=== PATIENT | male | born 1950 | race Hispanic/Latino ===

== ENCOUNTER 2017-12-11 01:21 | Emergency (ER) | payer MEDICARE, OTHER ==
[~2017-12-11] VITALS: Ht 182.9 cm; Wt 96.6 kg
--- OUTSIDE RECORDS SUMMARY | 2017-12-11 01:24 | XMS REPORT | Clinical Summary ---
Author Author [facility] Organization [facility] Address Unknown Phone Unavailable Care Team Providers Care Retail Sales Lead Name Role Phone Tavo Mina MD PCP Allergies Active Allergy Reactions Severity Noted Date Comments Penicillins Hives 03/02/2016 Tongue , eyelids swells Current Medications Prescription Sig. Disp. Refills Start End Date Status Date clopidogrel (PLAVIX) 75 Take 75 mg by mouth Active mg tablet daily. isosorbide mononitrate Take 30 mg by mouth 2 Active (IMDUR) 30 MG 24 hr (two) times a day. tablet pen needle, diabetic (BD Use once daily for 30 each 2 03/30/20 Active ULTRA-FINE JT PEN insulin administration 16 NEEDLES) 32 gauge x 5/32" needleIndications: Type 2 diabetes mellitus with diabetic chronic kidney disease furosemide (LASIX) 20 MG Take 1 tablet (20 mg 60 tablet 2 03/30/20 Active tabletIndications: total) by mouth 2 (two) 16 Essential hypertension times a day. aspirin (ECOTRIN) 81 MG Take 81 mg by mouth Active enteric coated tablet daily. insulin GLARGINE (LANTUS Inject 10 Units under the 1 pen 2 03/14/20 Active SOLOSTAR) 100 unit/mL skin daily. 17 injection (pen)Indications: Type 2 diabetes mellitus with chronic kidney disease, without long-term current use of insulin, unspecified CKD stage atorvastatin (LIPITOR) 10 TAKE ONE TABLET BY MOUTH 90 tablet 3 Active MG tabletIndications: ONCE NIGHTLY 17 Coronary artery disease involving [place] coronary artery of [place] heart without angina pectoris metoprolol tartrate Take 1.5 tablets (37.5 mg 90 tablet 0 07/18/20 Active (LOPRESSOR) 25 mg total) by mouth 2 (two) 17 tabletIndications: times a day. Essential hypertension losartan (COZAAR) 50 MG Take 50 mg by mouth Active tablet daily. hydrALAZINE (APRESOLINE) TAKE ONE TABLET BY MOUTH 180 tablet 1 Active 25 MG tabletIndications: TWICE DAILY 18 Essential hypertension cholecalciferol, vitamin Take 50,000 Units by 12/19/19 Discontin D3, 50,000 unit capsule mouth once a week. 17 ued losartan (COZAAR) 100 MG Take 1 tablet (100 mg 30 tablet 2 03/30/20 03/05/20 Discontin tabletIndications: total) by mouth daily. 16 17 ued Essential hypertension insulin GLARGINE (LANTUS Inject 10 Units under the 1 pen 2 03/30/20 03/14/20 Discontin SOLOSTAR) 100 unit/mL (3 skin daily. 16 17 ued mL) insulin penIndications: Type 2 diabetes mellitus with diabetic chronic kidney disease hydrALAZINE (APRESOLINE) Take 1/2 tablet by mouth 90 tablet 2 03/05/20 Discontin 25 MG tabletIndications: twice daily 16 17 ued Essential hypertension montelukast (SINGULAIR) Take 1 tablet (10 mg 30 tablet 2 11/23/19 Discontin 10 mg tabletIndications: total) by mouth nightly. 17 17 ued Allergic rhinitis, unspecified allergic rhinitis trigger, unspecified rhinitis seasonality atorvastatin (LIPITOR) 10 TAKE ONE TABLET BY MOUTH 30 tablet 0 01/10/20 Discontin MG tabletIndications: ONCE NIGHTLY 17 17 ued Coronary artery disease involving e[place] coronary artery of [place] heart without angina pectoris metoprolol tartrate TAKE ONE & ONE-HALF 90 tablet 0 12/06/19 Discontin (LOPRESSOR) 25 mg TABLETS BY MOUTH TWICE 17 17 ued tabletIndications: DAILY Essential hypertension acetaminophen (TYLENOL) Take 500 mg by mouth 07/25/20 Discontin 500 MG tablet every 6 (six) hours as 17 ued needed for mild pain. atorvastatin (LIPITOR) 10 TAKE ONE TABLET BY MOUTH 90 tablet 1 07/09/20 Discontin MG tabletIndications: ONCE NIGHTLY 17 17 ued Coronary artery disease involving e[place] coronary artery of [place] heart without angina pectoris metoprolol tartrate Take 1.5 tablets (37.5 mg 90 tablet 1 01/10/20 04/13/20 Discontin (LOPRESSOR) 25 mg total) by mouth 2 (two) 17 17 ued tabletIndications: times a day. Essential hypertension hydrALAZINE (APRESOLINE) TAKE ONE TABLET BY MOUTH 180 tablet 1 11/14/19 Discontin 25 MG tabletIndications: TWICE DAILY 17 18 ued Essential hypertension losartan (COZAAR) 100 MG TAKE ONE TABLET BY MOUTH 30 tablet 0 07/11/20 Discontin tabletIndications: ONCE DAILY 17 17 ued Essential hypertension metoprolol succinate XL TAKE ONE & ONE-HALF 90 tablet 0 04/13/2006/17 Discontin (TOPROL-XL) 25 mg 24 hr TABLETS BY MOUTH TWICE 17 17 ued tabletIndications: DAILY Essential hypertension metoprolol tartrate TAKE ONE & ONE-HALF 90 tablet 0 06/05/20 Discontin (LOPRESSOR) 25 mg TABLETS BY MOUTH TWICE 17 17 ued tabletIndications: DAILY Essential hypertension losartan (COZAAR) 100 MG Take 1 tablet (100 mg 90 tablet 2 07/11/20 07/25/20 Discontin tabletIndications: total) by mouth once 17 17 ued Essential hypertension daily. Active Problems Problem Noted Date Type 2 diabetes mellitus with diabetic chronic kidney disease 05/03/2016 Encounters Date Type Specialty Care Team Description 12/10/2017 Telephone Internal Medicine April Paulino MA 11/14/2017 Refill Internal Medicine Gagan Mina MD Essential hypertension 08/07/2017 Emergency Emergency Medicine Pradip Hemphill DO Epistaxis (Primary Dx) 07/25/2017 Office Visit Internal Medicine Gagan Mina MD Routine general medical examination at a health care facility (Primary Dx); Screening for colon cancer; Screening for prostate cancer; Type 2 diabetes mellitus with stage 3 chronic kidney disease, with long-term current use of insulin; Coronary artery disease involving ekw[place] coronary artery of ekw[place] heart without angina pectoris; History of renal cell cancer; Obesity (BMI 30.0-34.9); Flu vaccine need 07/18/2017 Orders Only Internal Medicine April Paulino MA Essential hypertension 07/11/2017 Orders Only Internal Medicine April Paulino MA Essential hypertension 07/09/2017 Orders Only Internal Medicine Gagan Mina MD Coronary artery disease involving e[place] coronary artery of ekw[place] heart without angina pectoris 06/05/2017 Refill Internal Medicine Gagan Mina MD Essential hypertension 04/13/2017 Refill Internal Medicine Gagan Mina MD Essential hypertension 03/14/2017 Orders Only Internal Medicine April Paulino MA Type 2 diabetes mellitus with chronic kidney disease, without long-term current use of insulin, unspecified CKD stage 03/05/2017 Refill Internal Medicine Gagan Mina MD Essential hypertension 02/19/2017 Telephone Internal Medicine April Paulino MA 01/10/2017 Telephone Internal Medicine April Paulino MA 01/09/2017 Orders Only Internal Medicine April Paulino MA Coronary artery disease involving e[place] coronary artery of ekw[place] heart without angina pectoris; Essential hypertension 12/21/2016 Hospital Plastic Surgery Ernesto Be MD Encounter 12/21/2016 Procedure Pass Plastic Surgery 12/21/2016 Surgery Plastic Surgery Ernesto Be MD VITRECTOMY, ENDOLASER - LEFT EYE 12/19/2016 Anesthesia Plastic Surgery Elodia Marie, [facility] Event after 12/10/2016 Immunizations Name Dates Previously Given Next Due FLUZONE HIGH-DOSE PF 07/25/2017, 11/23/2016 Influenza Trivalent 09/12/2014 Pneumococcal Conjugate 09/18/2012 Family History Medical History Relation Name Comments Stomach cancer Father Diabetes Mother Relation Name Status Comments Father Mother Social History Tobacco Use Types Packs/Day Years Used Date Never Smoker Alcohol Use Drinks/Week oz/Week Comments No Sex Assigned at Date Recorded Not on file Last Filed Vital Signs Vital Sign Reading Time Taken Blood Pressure 171/80 08/07/2017 3:15 AM CDT Pulse 72 08/07/2017 3:30 AM CDT Temperature 36.6 C (97.8 F) 08/07/2017 1:04 AM CDT Respiratory Rate 18 08/07/2017 1:04 AM CDT Oxygen Saturation 100% 08/07/2017 3:30 AM CDT Inhaled Oxygen - - Concentration Weight 105 kg (232 lb) 07/25/2017 9:35 AM CDT Height 182.9 cm (6') 08/07/2017 1:04 AM CDT Body Mass Index 31.46 07/25/2017 9:35 AM CDT Plan of Treatment Date Type Specialty Care Team Description 07/25/2018 Office Visit Internal Medicine Gagan Mina MD [id number] [facility] [address] [place] [address] Health Maintenance Due Date Last Done Comments COLONOSCOPY 1998 ZOSTER VACCINE 2008 PNEUMOCOCCAL-13 2013 FOOT EXAM 05/03/2017 05/03/2016, 05/03/2016 OPHTHALMOLOGY EXAM 05/03/2017 05/03/2016 PNEUMOCOCCAL Completed 09/18/2012 POLYSACCHARIDE VACCINE AGE 65 AND OVER INFLUENZA VACCINE Completed 07/25/2017, 11/23/2016, 09/12/2014 Procedures Procedure Name Priority Date/Time Associated Diagnosis Comments VITRECTOMY, ENDOLASER - 12/21/2016 Vitreous hemorrhage of LEFT EYE 7:15 AM 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 Component Value Ref Range GFR Non Af Amer 13 (A) mL/min/1.73 m2 GFR Af Amer 15 (A) mL/min/1.73 m2 Comment: Chronic kidney disease: <60 mL/min/1.73m2 Kidney failure: <15 mL/min/1.73m2 The estimated GFR is calculated from the IDMS-traceable Modification of Diet in Renal Disease Equation. The accuracy of the calculation is poor when the creatinine is normal. Calculated values >90 mL/min/1.73m2 are not reported. This equation has not been validated in children (<18 years), women, the elderly (>70 years), or ethnic groups other than Caucasians and Americans. Specimen Performing Laboratory Plasma specimen [facility] DEPARTMENT OF PATHOLOGY AND GENOMIC MEDICINE [address] [place] [id number] * Partial thromboplastin time, activated (08/07/2017 3:17 AM) Component Value Ref Range PTT 30.9 23.0 - 36.0 sec Comment: PTT therapeutic range for unfractionated heparin is 61.0-112.0 seconds which corresponds to Anti-Xa 0.3-0.7 U/ml. Specimen Performing Laboratory Blood [facility] DEPARTMENT OF PATHOLOGY AND GENOMIC MEDICINE [address] [place] [address] * Prothrombin time with INR (08/07/2017 3:17 AM) Component Value Ref Range Prothrombin time 14.5 12.0 - 15.0 sec INR 1.1 Comment: The International Normalized Ratio (INR) is a therapeutic monitoring tool for patients who are stable on oral anticoagulant therapy. An INR of 2.0-3.0 is suggested for deep vein thrombosis/pulmonary embolism. Specimen Performing Laboratory Blood [facility] DEPARTMENT OF PATHOLOGY AND [facility] [address] [place] [id number] * CBC with platelet and differential (08/07/2017 3:17 AM) Only the most recent of 3 results within the time period is included. Component Value Ref Range WBC 7.08 4.50 - 11.00 k/uL RBC 3.02 (L) 4.40 - 6.00 m/uL HGB 9.4 (L) 14.0 - 18.0 g/dL HCT 29.9 (L) 41.0 - 51.0 % MCV 99.0 82.0 - 100.0 fL MCH 31.1 27.0 - 34.0 pg MCHC 31.4 31.0 - 37.0 g/dL RDW - SD 52.0 37.0 - 55.0 fL MPV 11.7 8.8 - 13.2 fL Platelet count 166 150 - 400 k/uL Nucleated RBC 0.00 /100 WBC Neutrophils 64.8 39.0 - 69.0 % Lymphocytes 20.2 (L) 25.0 - 45.0 % Monocytes 8.5 0.0 - 10.0 % Eosinophils 5.1 (H) 0.0 - 5.0 % Basophils 1.0 0.0 - 1.0 % Immature granulocytes 0.4Comment: "Immature granulocytes" 0.0 - 1.0 % (promyelocytes, myelocytes, metamyelocytes) Specimen Performing Laboratory Blood [facility] DEPARTMENT OF PATHOLOGY AND GENOMIC MEDICINE [address] [place] [id number] * Comprehensive metabolic panel (08/07/2017 3:17 AM) Only the most recent of 2 results within the time period is included. Component Value Ref Range Sodium 144 135 - 148 mEq/L Potassium 5.1 (H) 3.5 - 5.0 mEq/L Chloride 115 (H) 98 - 112 mEq/L CO2 15 (L) 24 - 31 mEq/L Anion gap 14 7 - 15 mEq/L Comment: Starting from January , anion gap calculation no longer incorporates potassium. Please note the change. BUN 69 (H) 8 - 23 mg/dL Creatinine 4.6 (H) 0.7 - 1.2 mg/dL Glucose 110 (H) 65 - 99 mg/dL Calcium 7.5 (L) 8.8 - 10.2 mg/dL Protein 6.6 6.3 - 8.3 g/dL Comment: 4.6-7.0 g/dL 1 week 4.4-7.6 g/dL 7 months-1year 5.1-7.3 g/dL 1-2 years 5.6-7.5 g/dL >3 years 6.0-8.0 g/dL 18-150 6.3-8.3 g/dL Albumin 2.9 (L) 3.5 - 5.0 g/dL A/G ratio 0.8 0.7 - 3.8 Alkaline phosphatase 110 40 - 129 U/L AST 26 10 - 50 U/L ALT 22 5 - 50 U/L Total bilirubin <0.2 0.0 - 1.2 mg/dL Specimen Performing Laboratory Plasma specimen [facility] DEPARTMENT OF PATHOLOGY AND GENOMIC MEDICINE [address] [place] [address] * Microalbumin / creatinine urine ratio (07/25/2017 10:18 AM) Component Value Ref Range Creatinine, urine, random 108 20 - 370 mg/dL Microalbumin, urine 506.0 See Note: mg/dL Comment: Reference Range: Reference Range Not established Results verified by repeat analysis on dilution. Microalbumin/creatinine 4,685 (H) <30 mcg/mg creat ratio Comment: The ADA defines abnormalities in albumin excretion as follows: Category Result (mcg/mg creatinine) Normal <30 Microalbuminuria 30-299 Clinical albuminuria > XZ=[id number] The ADA recommends that at least two of three specimens collected within a 3-6 month period be abnormal before considering a patient to be within a diagnostic category. Specimen Performing Laboratory Urine [facility] Narrative FASTING:NO * Prostate specific antigen (07/25/2017 10:18 AM) Component Value Ref Range PSA 0.7 < OR=4.0 ng/mL Comment: The total PSA value from this assay system is standardized against the WHO standard. The test result will be approximately 20% lower when compared to the equimolar-standardized total PSA (Osvaldo [place]). Comparison of serial PSA results should be interpreted with this fact in mind. This test was performed using the Siemens chemiluminescent method. Values obtained from different assay methods cannot be used interchangeably. PSA levels, regardless of value, should not be interpreted as absolute evidence of the presence or absence of disease. Specimen Performing Laboratory Blood [facility] Narrative FASTING:NO * Lipid panel (07/25/2017 10:18 AM) Component Value Ref Range Cholesterol, total 127 <200 mg/dL HDL cholesterol 33 (L) >40 mg/dL Triglycerides 109 <150 mg/dL LDL cholesterol 75 mg/dL (calc) calculated Comment: Reference range: <100 Desirable range <100 mg/dL for patients with CHD or diabetes and <70 mg/dL for diabetic patients with known heart disease. LDL-C is now calculated using the rSinivas-Lopez calculation, which is a validated novel method providing better accuracy than the Friedewald equation in the estimation of LDL-C. Srinivas SS et al. BON. 2013;310(51): 4716-6080 (http://education.Picplum/faq/QPZ932) Cholesterol/HDL ratio 3.8 <5.0 (calc) Non-HDL cholesterol 94 <130 mg/dL (calc) Comment: For patients with diabetes plus 1 major ASCVD risk factor, treating to a non-HDL-C goal of <100 mg/dL (LDL-C of <70 mg/dL) is considered a therapeutic option. Specimen Performing Laboratory Blood [facility] Narrative FASTING:NO * Basic metabolic panel (07/25/2017 10:18 AM) Component Value Ref Range Glucose 171 (H) 65 - 99 mg/dL Comment: Fasting reference interval For someone without known diabetes, a glucose value >125 mg/dL indicates that they may have diabetes and this should be confirmed with a follow-up test. BUN, whole blood 66 (H) 7 - 25 mg/dL Creatinine 3.91 (H) 0.70 - 1.25 mg/dL Comment: For patients >49 years of age, the reference limit for Creatinine is approximately 13% higher for people identified as -Scottish. EGFR Non-Afr. Scottish 15 (L) > OR=60 mL/min/1.73m2 EGFR 17 (L) > OR=60 mL/min/1.73m2 BUN/creatinine ratio 17 6 - 22 (calc) Sodium 145 135 - 146 mmol/L Potassium 5.1 3.5 - 5.3 mmol/L Chloride 116 (H) 98 - 110 mmol/L CO2 20 20 - 31 mmol/L Calcium 7.9 (L) 8.6 - 10.3 mg/dL Specimen Performing Laboratory Blood [facility] Narrative FASTING:NO * POC glycosylated hemoglobin (Hb A1C) (07/25/2017 9:50 AM) Component Value Ref Range POC Hemoglobin A1C 6.0 % Specimen Performing Laboratory Blood * POC glucose (12/21/2016 6:03 AM) Component Value Ref Range POC glucose 145 (H) 65 - 99 mg/dL Comment: Meter ID: [id number] Cans Vacuum Tester: Cyrus Quan Specimen Performing Laboratory [facility] DEPARTMENT OF PATHOLOGY AND GENOMIC MEDICINE [address] [place] [phone] * ECG Pre/Post Op (12/19/2016 10:19 AM) Component Value Ref Range Ventricular rate 74 Atrial rate 74 MD interval 238 QRSD interval 108 QT interval 434 QTC interval 481 P axis 1 68 QRS axis 1 -44 T wave axis 133 EKG impression Sinus rhythm with 1st degree AV block with frequent premature ventricular complexes-Left axis deviation-Left ventricular hypertrophy with repolarization abnormality-Prolonged QT-Abnormal ECG-In automated comparison with ECG of -2014 17:12,-premature ventricular complexes are now present-Incomplete right bundle branch block is no longer present-Criteria for Septal infarct are no longer present-Criteria for Inferior infarct are no longer present- Specimen Performing Laboratory [facility] [address] [place] [phone] * Hemoglobin A1c (12/19/2016 10:11 AM) Component Value Ref Range Hemoglobin A1C 7.1 (H) 4.0 - 5.6 % Comment: HbA1c cutoffs for diagnosing diabetes: 4.0% - 5.6%=normal 5.7% - 6.4%=increased risk for diabetes (prediabetes) >=6.5%=diabetes Goals for glycemic control (ADA 2016) < 7.0% Target for non adults with diabetes. More or less stringent targets may be appropriate for individual patients. <7.5% Target for Children and adolescents with type 1 diabetes. Specimen Performing Laboratory Blood [facility] DEPARTMENT OF PATHOLOGY AND GENOMIC MEDICINE [address] [place] [phone] after 12/10/2016 Insurance Payer Benefit Subscriber ID Type Phone Address Plan / Group MEDICARE MEDICARE xxxxxxxxxx [place] B [employer] [place] xxxxxxxxxx [employer] [place] [employer] [place] [employer] [place]
--- NOTE | 2017-12-11 02:40 | Diagnostic Imaging Report ---
CHEST 2 VIEWS, Technique: CHEST 2 VIEWS Comparison: None Clinical history: Cough DISCUSSION: Mildly enlarged cardiac silhouette status post sternotomy and valve prosthesis. Aortic calcification. Mild left basilar/retrocardiac opacity. No pleural effusion or pneumothorax. IMPRESSION: Mild left basilar opacity, favor atelectasis over infection. Recommend 6-8 week follow-up. Signed by: Dr Rosemarie Garcia MD on 12/11/2017 2:37 AM
== END 2017-12-11 02:53 | disposition home or self-care (01) ==
LOC: ER 01:21
DX: R05 Cough (principal); M79.1 Myalgia; R09.81 Nasal congestion; Z20.828 Contact with and (suspected) exposure to other viral communicable diseases
CPT/HCPCS: 71046; 87400; 99284

== ENCOUNTER 2018-05-24 18:34 | Emergency (ER) | payer MEDICARE, OTHER ==
[~2018-05-24] VITALS: Ht 182.9 cm; Wt 96.6 kg
== END 2018-05-24 19:27 | disposition home or self-care (01) ==
LOC: ER 18:34
DX: M54.31 Sciatica, right side (principal); X50.0XXA Overexertion from strenuous movement or load, initial encounter; Y92.008 Other place in unspecified non-institutional (private) residence as the place of occurrence of the external cause; I10 Essential (primary) hypertension; E11.9 Type 2 diabetes mellitus without complications; E78.5 Hyperlipidemia, unspecified; Z85.528 Personal history of other malignant neoplasm of kidney
CPT/HCPCS: 99282